=== PATIENT | male | born 1995 | race Caucasian/White ===

== ENCOUNTER 2024-09-12 01:32 | Emergency (ER) | payer OTHER, SELFPAY ==
[2024-09-12 01:37] VITALS: BP 116/76; PULSE 67; RESP 16; TEMP 35.8; O2SAT 99; BMI 24.4
--- NOTE | 2024-09-12 01:58 | ED_ITS ---
HPI - Abdominal Pain General Date Seen: 09/12/24 Chief Complaint: Abdominal Pain Stated Complaint: abdominal pain Time Seen by Provider: 09/12/24 01:36 Source: patient Mode of arrival: ambulatory Limitations: no limitations History of Present Illness HPI narrative: Patient is a 28-year-old male presenting to the emergency department for abdominal pain. He states is seen any he went to a [employer] restaurant that he has frequented multiple times before. Was doing well up until around midnight when he started having epigastric pain. Pain does not seem to radiate. His fiancee ate at the same place and did not get sick. Has not had any nausea or vomiting. No previous abdominal surgeries. Had a normal bowel movement at 20:00. Has been taking some Prilosec, Pepto-Bismol, Tums without any improvement. Has not had any fevers or chills. Denies chest pain or shortness of breath. Denies lightheadedness or dizziness. No one has been sick around him that he is aware of. No other concerns noted. Related Data Allergies Allergy/AdvReac Type Severity Reaction Status Date / Time No Known Drug Allergies Allergy Verified 09/12/24 01:43 Review of Systems Status of ROS Reports: 10 or more systems reviewed and unremarkable except as noted in History and below [facility] Social History Non-prescribed substance use: denies use Exam Narrative: Exam Narrative: Const: Well-nourished, Well-developed, in mild distress Eyes: PERRL, no conjunctival injection, and symmetrical lids HENT: Atraumatic external nose and ears. Moist mucous membranes. Neck: Symmetric, trachea midline, No thyromegaly. CVS: RRR, No murmurs or gallops. Peripheral pulses 2+ and equal in all extremities RESP: Unlabored respiratory effort. Clear to auscultation bilaterally. GI: Epigastric tenderness, Nondistended, No rebound or guarding. Negative Cook sign MSK:Extremities w/o deformity, Normal Active ROM Skin: Warm, Dry. No rashes or lesions. Neuro: Normal Muscle tone, No focal neurological deficits. Psych: Awake, Alert, & Oriented x3. Appropriate mood and affect. Const: Vital Signs, click to edit/add: Vital Signs - 24 hr 09/12/24 01:37 Temperature 96.5 F L Pulse Rate [Left P ulse Oximeter] 67 Respiratory Rate 16 Blood Pressure [Ri ght Upper Arm] 116/76 Pulse Oximetry 99 Oxygen Delivery Me thod Room Air Course Vital Signs Vital signs: Initial Vital Signs Temperature 96.5 F L 09/12/24 01:37 Temperature Source Temporal Artery Scan 09/12/24 01:37 Pulse Rate 67 09/12/24 01:37 Pulse Rhythm Regular 09/12/24 01:37 Respiratory Rate 16 09/12/24 01:37 Blood Pressure 116/76 09/12/24 01:37 Blood Pressure Mean 89 09/12/24 01:37 Blood Pressure Position Sitting 09/12/24 01:37 Pulse Oximetry 99 09/12/24 01:37 Oxygen Delivery Method Room Air 09/12/24 01:37 Vital Signs Temperature 96.5 F L 09/12/24 01:37 Pulse Rate 67 09/12/24 01:37 Respiratory Rate 16 09/12/24 01:37 Blood Pressure 116/76 09/12/24 01:37 Pulse Oximetry 99 09/12/24 01:37 Oxygen Delivery Method Room Air 09/12/24 01:37 Temperature 96.5 F L 09/12/24 01:37 Pulse Rate 67 09/12/24 01:37 Respiratory Rate 16 09/12/24 01:37 Blood Pressure 116/76 09/12/24 01:37 Pulse Oximetry 99 09/12/24 01:37 Oxygen Delivery Method Room Air 09/12/24 01:37 Medications Administered Medications: Discontinued Medications Generic Name Dose Route Start Last Admin Trade Name Freq PRN Reason Stop Dose Admin Lidocaine/Aluminum/Magnesium/Simeth 30 ml 09/12/24 01:58 09/12/24 02:17 Gi Cocktail (Visc Lido/Antacid) 30 Ml PO 09/12/24 01:59 30 ml ONCE ONE Administration MDM - Abdominal Pain MDM Narrative Medical decision making narrative: Patient is a 28-year-old male presenting to the emergency department for epigastric pain. Has pain all across his upper abdomen but much worse the epigastric region. Mild right upper quadrant and left upper quadrant pain. Negative Cook sign. Seems more likely to be related to the gastroenteritis and/or pancreatitis. Less concerned about gallbladder liver disease. Will hold off on ultrasound her lab work comes back. Will do a GI cocktail to see if that helps with the symptoms. Also order CBC, CMP, lipase. I have low concern for appendicitis or diverticulitis currently due to location. Lab work showed a slightly elevated AST and indirect bilirubin. Rest of his lab work shows no concerning findings. Considering the slightly elevated AST I did do a right upper quadrant ultrasound. It showed a distended gallbladder with cholelithiasis but no sonographic evidence of cholecystitis. Is also a pack steatosis and a focal hyperechoic area that may represent a hemangioma. Overall the patient states he is feeling better after the GI cocktail. I do review safe for discharge. Lab Data Labs: Lab Results 09/12/24 09/12/24 Range/Units 02:06 02:51 WBC 6.77 (4.50-11.00) K/uL RBC 4.89 (4.30-5.90) m/uL Hgb 14.3 (13.5-17.5) gm/dL Hct 41.6 (37.0-53.0) % MCV 85 (80-100) fL MCH 29 (26-34) pg MCHC 34 (32-36) gm/dL RDW Coeff of Olegario 13.0 (11.5-15.5) % Plt Count 236 (140-440) K/uL Neut % (Auto) 35.1 L (42.0-72.0) % Lymph % (Auto) 34.9 (20-44) % Metcalfe % (Auto) 8.7 (0.0-11.0) % Eos % (Auto) 20.8 H (0.0-7.0) % Baso % (Auto) 0.4 (0.0-3.0) % Neut # (Auto) 2.40 (1.7-7.0) K/uL Lymph # (Auto) 2.36 (0.90-2.90) K/uL Metcalfe # (Auto) 0.60 (0.00-0.90) K/UL Eos # (Auto) 1.40 H (0.00-0.50) K/uL Baso # (Auto) 0.03 (0.00-0.30) K/uL Abs Immat Gran (auto) 0.01 (0.00-0.30) K/uL Imm/Tot Granulo (auto) 0.1 % Sodium 137 (135-149) mmol/L Potassium 3.4 L (3.6-5.1) mmol/L Chloride 102 (96-114) mmol/L Carbon Dioxide 27 (20-32) mmol/L Anion Gap 8 (7-15) mEq/L BUN 18 (5-24) mg/dL Creatinine 1.4 (0.5-1.5) mg/dL Estimated Creat Clear 84.41 Estimated GFR 71 ml/min Glucose 144 H (60-115) mg/dL Calcium 9.1 (8.4-10.6) mg/dL Total Bilirubin 2.0 H (0.1-1.5) mg/dL Direct Bilirubin 0.2 (0.0-0.5) mg/dL AST 65 H (12-35) U/L ALT 43 (4-50) U/L Alkaline Phosphatase 59 (40-150) U/L Total Protein 7.1 (6.0-8.3) g/dL Albumin 4.3 (3.3-5.0) g/dL Lipase 155 (23-300) U/L Lab Acknowledgement Test Added Imaging Data US - abdomen: Attestation: I have reviewed the pertinent imaging results. Radiologist's impression: 1. Distended gallbladder with cholelithiasis. No other sonographic evidence of cholecystitis. 2. Hepatic steatosis. 3. Focal hyperechoic area along the right hepatic dome, which may represent a hemangioma. Dictated by Mesfin Vo MD @ 09/12/2024 3:58:28 AM Discharge Plan Discharge Clinical Impression: Abdominal pain Qualifiers: Abdominal location: epigastric Qualified Code(s): R10.13 - Epigastric pain Cholelithiasis Qualifiers: Cholelithiasis location: gallbladder Cholecystitis presence: without cholecystitis Biliary obstruction: without biliary obstruction Qualified Code(s): K80.20 - Calculus of gallbladder without cholecystitis without obstruction Patient Disposition: Home, Self-Care Condition: Improved Instructions: Abdominal Pain (ED) Additional Instructions: Your pain may have been from gastroenteritis. Symptoms should improve. Of note though you have also are having some gallstones. Cannot say for certain if this was related to your pain or not. If you continue to have right upper quadrant pain I recommend following up with General surgery. Ultrasound also shows some fatty liver disease and an area in your liver that likely represents a hemangioma. These typically do not require follow-up and intervention is rarely needed. Follow Up/Referrals: Provider,Not a Local [Primary Care Provider, Family Practice] Stand Alone Forms: [employer] Info Instructions
[2024-09-12 02:14] LABS: Basophils Absolute Auto 0.03 K/uL (0.00-0.30); Basophils Percent Auto 0.4 % (0.0-3.0); Eosinophils Percent Auto 20.8 % (0.0-7.0); Hematocrit 41.6 % (37.0-53.0); Hemoglobin* 14.3 gm/dL (13.5-17.5); Immature Granulocytes Abs Auto 0.01 K/uL (0.00-0.30); Immature Granulocytes Pct Auto 0.1 %; Lymphocytes Absolute Auto 2.36 K/uL (0.90-2.90); Lymphocytes Percent Auto 34.9 % (20-44); Mean Corpuscular HGB Conc 34 gm/dL (32-36); Mean Corpuscular Hemoglobin 29 pg (26-34); Mean Corpuscular Volume 85 fL (80-100); Monocytes Percent Auto 8.7 % (0.0-11.0); Neutrophils Percent Auto 35.1 % (42.0-72.0); Platelet Count* 236 K/uL (140-440); Red Blood Count 4.89 m/uL (4.30-5.90); White Blood Count* 6.77 K/uL (4.50-11.00)
[2024-09-12 02:15] LABS: Slide Review Reflex No
[2024-09-12] MEDS: GI COCKTAIL (VISC LIDO/ANTACID) 30 ML PO (02:17)
--- OUTSIDE RECORDS SUMMARY | 2024-09-12 02:22 | XMS_ITS | Clinical Summary ---
Author Organization [employer] [facility] Address [address] [place] [id number] Care Team Providers Care Court Interpreter Name Role Phone Clinic, No Pcp Or Primary Care Provider Unavaila ble Allergies No known active allergies Medications ciprofloxacin HCl (CILOXAN) 0.3 % ophthalmic solutionIndicati ons:Foreign body of left cornea, initial encounter Place 1 Drop into left eye every 2 hours while awake. 5 mL 05/03/2023 Active Social History Tobacco Use Types Packs/Day Years Used Date Smoking Tobacco: Unknown Tobacco Cessation:Counseling Given: Not Answered Sex and Gender Information Value Date Recorded Sex Assigned at Not on file Legal Sex Male 10:30 AM [employer] Gender Identity Not on file Sexual Orientation Not on file Obstetrics History Last Filed Vital Signs Vital Sign Reading Time Taken Comments Blood Pressure 137/84 05/03/2023 10:48 AM [employer] Pulse 84 05/03/2023 10:48 AM [employer] Temperature 36.3 C (97.4 F) 05/03/2023 10:48 AM [employer] Respiratory Rate 20 05/03/2023 10:48 AM [employer] Oxygen Saturation 97% 05/03/2023 10:48 AM [employer] Inhaled Oxygen Concentration - - Weight 83.9 kg (185 lb) 05/03/2023 10:48 AM [employer] Height 180.3 cm (5' 11) 05/03/2023 10:48 AM [employer] Body Mass Index 25.8 05/03/2023 10:48 AM [employer] Plan of Treatment Not on file Insurance RAFFAELE Black [id number] [facility] Care Teams Court Interpreter Relationship Specialty Start Date End Date Clinic, No Pcp Or . PCP - General 05/03/23
[2024-09-12 02:28] LABS: Albumin* 4.3 g/dL (3.3-5.0); Chloride* 102 mmol/L (96-114); Potassium* 3.4 mmol/L (3.6-5.1); Sodium* 137 mmol/L (135-149)
[2024-09-12 02:30] LABS: Blood Urea Nitrogen* 18 mg/dL (5-24); Creatinine* 1.4 mg/dL (0.5-1.5); Est. Creatinine Clearance* 84.41; Estimated Glomerular Filt Rate 71 ml/min
[2024-09-12 02:31] LABS: Alanine Aminotransferase* 43 U/L (4-50); Alkaline Phosphatase* 59 U/L (40-150); Anion Gap 8 mEq/L (7-15); Aspartate Amino Transferase* 65 U/L (12-35); Calcium* 9.1 mg/dL (8.4-10.6); Carbon Dioxide* 27 mmol/L (20-32); Glucose* 144 mg/dL (60-115); Lipase* 155 U/L (23-300); Total Protein* 7.1 g/dL (6.0-8.3)
--- NOTE | 2024-09-12 02:52 | CRLHL7_ITS ---
For Patients: As a result of the Century Cures Act, medical imaging exams and procedure reports are released immediately into your electronic medical record. You may view this report before your referring provider. If you have questions, please contact your health care provider. INDICATION: Right upper quadrant abdominal pain. TECHNIQUE: Ultrasound abdomen limited. Sonographic images of the right upper quadrant were obtained using lovett-scale and color Doppler images. COMPARISON: None. FINDINGS: Liver: Increased in echogenicity, likely reflecting fatty infiltration. Focal area of hyperechogenicity along the right hepatic dome measuring 1.3 x 1.6 x 1.8 cm. No intrahepatic biliary ductal dilatation. Gallbladder: Distended gallbladder with stones and sludge. Non mobile echogenic focus along the gallbladder wall measuring 10 x 5 x 6 mm, likely representing a polyp. Normal wall thickness. No pericholecystic fluid. Negative sonographic Cook`s sign. Common bile duct: 2 mm. Pancreas: Unremarkable. Right kidney: Normal in size. Normal echotexture and cortex. No suspicious masses or hydronephrosis. Vasculature: Proximal abdominal aorta and IVC are unremarkable. Patent main portal vein with hepatopetal flow. IMPRESSION: 1. Distended gallbladder with cholelithiasis. No other sonographic evidence of cholecystitis. 2. Hepatic steatosis. 3. Focal hyperechoic area along the right hepatic dome, which may represent a hemangioma. Dictated by Mesfin Vo MD @ 09/12/2024 3:58:28 AM (Electronically Signed)
--- NOTE | 2024-09-12 03:13 | ED.NURSE ---
pt taken for ultra sound
[2024-09-12 03:15] LABS: Bilirubin Direct* 0.2 mg/dL (0.0-0.5)
[2024-09-12 04:10] VITALS: BP 136/62; PULSE 66; RESP 16; O2SAT 99
== END 2024-09-12 04:18 | disposition home or self-care (01) ==
PROVIDERS: Emergency Provider Student in an Organized Health Care Education/Training Program
DX: K80.00 Calculus of gallbladder with acute cholecystitis without obstruction (principal)
CPT/HCPCS: 00790; 36415; 74177; 76705; 80048; 80053; 80076; 82248; 83690; 85025; 99284; 99285; A9270; J0330; J0665; J0690; J0780; J1100; J2250; J2371; J2405; J2704; J2710; J3010; J3490; J7120; Q9967

== ENCOUNTER 2024-09-12 06:29 | Day surgery (SDC) | payer OTHER, SELFPAY ==
[2024-09-12] VITALS (16 sets, daily range): BP systolic 97–133; BP diastolic 54–91; PULSE 56–96; RESP 8–20; TEMP 36.2–36.7; O2SAT 92–99; BMI 24.4; BMI 24.5
--- NOTE | 2024-09-12 06:56 | ED.ABDPAIN ---
HPI - Abdominal Pain General Date Seen: 09/12/24 Chief Complaint: Abdominal Pain Stated Complaint: Gallbladder stones Time Seen by Provider: 09/12/24 06:46 Source: patient Mode of arrival: ambulatory Limitations: no limitations History of Present Illness HPI narrative: Patient is a 28-year-old male presenting to the emergency department for epigastric pain. He was seen a few hours prior by myself for the symptoms. He did have some cholelithiasis place as his pain was tolerable and he felt safe going home and following up outpatient. States he got home and feels like the pain has been getting worse. Says it is a 7/10 pain and he is unable to sleep due to it. Pain is still in his epigastric region. Has not had anything further to be since onset of symptoms. Denies fevers or chills. No other concerns noted. Related Data Previous Rx's ?Medication ?Instructions ?Recorded hydrocodone 5 mg-acetaminophen 325 1 tab PO Q6H PRN pain #20 tabs 09/12/24 mg tablet Allergies Allergy/AdvReac Type Severity Reaction Status Date / Time No Known Drug Allergies Allergy Verified 09/12/24 01:43 Review of Systems Status of ROS Reports: 10 or more systems reviewed and unremarkable except as noted in History and below [facility] Medical History (Updated 09/13/24 @ 11:06 by Shahram Clement DO) Left tibial fracture ?S82.A - Unspecified fracture of shaft of left tibia, initial encounter for closed fracture (ICD-10) Social History (Updated 09/12/24 @ 09:13 by Dank Ford MD) Narrative: Patient denies smoking, drinks alcohol on the weekends, 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 He does heavy lifting at work. Smoking Status: Smoker, status unknown Do you use any of these nicotine containing products: None How often do you have a drink containing alcohol: 2-3 times a week AUDIT-C Alcohol total score: 3 Non-prescribed substance use: denies use Exam Narrative: Exam Narrative: Const: Well-nourished, Well-developed, in mild distress Eyes: PERRL, no conjunctival injection, and symmetrical lids HENT: Atraumatic external nose and ears. Moist mucous membranes. Neck: Symmetric, trachea midline, No thyromegaly. CVS: RRR, No murmurs or gallops. Peripheral pulses 2+ and equal in all extremities RESP: Unlabored respiratory effort. Clear to auscultation bilaterally. GI: Epigastric tenderness, negative Cook sign, Nondistended, No rebound or guarding. MSK:Extremities w/o deformity, Normal Active ROM Skin: Warm, Dry. No rashes or lesions. Neuro: Normal Muscle tone, No focal neurological deficits. Psych: Awake, Alert, & Oriented x3. Appropriate mood and affect. Const: Vital Signs, click to edit/add: Vital Signs - 24 hr 09/12/24 11:10 09/12/24 11:15 09/12/24 11:20 Temperature Pulse Rate 91 87 86 Respiratory Rate 10 L 14 15 Blood Pressure 112/69 117/65 104/58 L Pulse Oximetry 99 99 95 Oxygen Delivery Me thod Room Air Oxygen Flow Rate 09/12/24 11:25 09/12/24 11:30 09/12/24 11:35 Temperature 98.1 F Pulse Rate 80 75 82 Respiratory Rate 14 16 15 Blood Pressure 112/54 L 108/56 L 120/67 Pulse Oximetry 95 95 97 Oxygen Delivery Me thod Oxygen Flow Rate 09/12/24 11:45 09/12/24 12:00 09/12/24 12:15 Temperature 97.7 F Pulse Rate 96 86 56 L Respiratory Rate 16 16 16 Blood Pressure 107/58 L 114/91 H 110/67 Pulse Oximetry 96 92 97 Oxygen Delivery Me thod Room Air Room Air Nasal Cannula Oxygen Flow Rate 2 09/12/24 12:30 09/12/24 12:46 09/12/24 13:24 Temperature 97.4 F L 97.4 F L Pulse Rate 62 60 66 Respiratory Rate 16 16 16 Blood Pressure 110/65 112/68 97/62 Pulse Oximetry 98 96 96 Oxygen Delivery Me thod Nasal Cannula Room Air Room Air Oxygen Flow Rate 2 09/12/24 13:56 Temperature Pulse Rate 68 Respiratory Rate 16 Blood Pressure 109/60 Pulse Oximetry 96 Oxygen Delivery Me thod Room Air Oxygen Flow Rate Course Vital Signs Vital signs: Initial Vital Signs Temperature 97.4 F L 09/12/24 06:34 Temperature Source Temporal Artery Scan 09/12/24 06:34 Pulse Rate 79 09/12/24 06:34 Pulse Rhythm Regular 09/12/24 06:34 Respiratory Rate 16 09/12/24 06:34 Blood Pressure 133/79 09/12/24 06:34 Blood Pressure Mean 97 09/12/24 06:34 Blood Pressure Position Sitting 09/12/24 06:34 Pulse Oximetry 98 09/12/24 06:34 Oxygen Delivery Method Room Air 09/12/24 06:34 Vital Signs Temperature 97.4 F L 09/12/24 06:34 Pulse Rate 79 09/12/24 06:34 Respiratory Rate 16 09/12/24 06:34 Blood Pressure 133/79 09/12/24 06:34 Pulse Oximetry 98 09/12/24 06:34 Oxygen Delivery Method Room Air 09/12/24 06:34 Temperature 97.4 F L 09/12/24 13:24 Pulse Rate 68 09/12/24 13:56 Respiratory Rate 16 09/12/24 13:56 Blood Pressure 109/60 09/12/24 13:56 Pulse Oximetry 96 09/12/24 13:56 Oxygen Delivery Method Room Air 09/12/24 13:56 Oxygen Flow Rate 2 09/12/24 12:30 Medications Administered Medications: Discontinued Medications Generic Name Dose Route Start Last Admin Trade Name Freq PRN Reason Stop Dose Admin Bupivacaine HCl 30 ml 09/12/24 10:13 09/12/24 10:13 Bupivacaine 0.25% 30 Ml INJECTION 09/12/24 10:14 10 ml ONCE ONE Administration Cefazolin Sodium 0 gm 09/12/24 09:08 09/12/24 09:51 Cefazolin 1 Gm Inj IVP 09/12/24 09:09 2 gm ONCE ONE Administration Lactated Ringer's 1,000 mls @ 100 mls/hr 09/12/24 08:35 09/12/24 14:00 Lactated Ringers 1000 Ml IV Infused .Q10H KENDRA Infusion Lidocaine/Aluminum/Magnesium/Simeth 30 ml 09/12/24 06:53 09/12/24 06:58 Gi Cocktail (Visc Lido/Antacid) 30 Ml PO 09/12/24 06:54 30 ml ONCE ONE Administration Lidocaine/Epinephrine 20 ml 09/12/24 10:13 09/12/24 10:13 Lidocaine 1%-Epi 1:100,000 INFILTRATI 09/12/24 10:14 10 ml ONCE ONE Administration Ondansetron HCl 4 mg 09/12/24 08:34 09/12/24 11:45 Ondansetron 2 Mg/Ml Inj IVP 4 mg ONCE PRN Administration Nausea Oxycodone HCl 5 mg 09/12/24 06:53 09/12/24 06:58 Oxycodone 5 Mg Tablet PO 09/12/24 06:54 5 mg ONCE ONE Administration Prochlorperazine 5 mg 09/12/24 08:34 09/12/24 12:07 Prochlorperazine 5 Mg/Ml Vial IVP 09/12/24 08:35 5 mg ONCE ONE Administration Sodium Chloride 10 ml 09/12/24 08:34 09/12/24 08:51 Sodium Chloride 0.9 % (Flush) 10 Ml Syringe IVF 10 ml .FLUSH PRN Administration MDM - Abdominal Pain MDM Narrative Medical decision making narrative: Patient is a 28-year-old male presenting for epigastric pain. He is also having some mild right upper quadrant pain but is nontender to the right upper quadrant. He has known cholelithiasis diagnosed earlier this morning. Lab work from this morning showed no concerning abnormalities other than mildly elevated LFT. Lipase was normal. Will give him some more oxycodone and another GI cocktail to see if it helps the symptoms. Patient's pain is improved now I spoke to mom about following up outpatient symptoms surgery versus talking to them about a possible surgery today for his cholelithiasis. This time he would prefer to follow-up outpatient. I will still speak to General surgery to get their opinion. I spoke to Dr. Ford, and explained that his earlier labs from this morning were not overtly concerning and his pain is more epigastric and right upper quadrant. She recommends doing a CT scan for evaluation and if it is normal to follow-up with General surgery and primary care. CT scan shows concerns of cholecystitis. His white count is still normal. I spoke to Dr. Ford again in her plan is to do surgery today. He is agreeable to this plan. He will be NPO Lab Data Labs: Lab Results 09/12/24 Range/Units 07:55 WBC 7.59 (4.50-11.00) K/uL RBC 4.99 (4.30-5.90) m/uL Hgb 14.4 (13.5-17.5) gm/dL Hct 42.4 (37.0-53.0) % MCV 85 (80-100) fL MCH 29 (26-34) pg MCHC 34 (32-36) gm/dL RDW Coeff of Olegario 13.2 (11.5-15.5) % Plt Count 247 (140-440) K/uL Neut % (Auto) 61.5 (42.0-72.0) % Lymph % (Auto) 16.9 L (20-44) % Geary % (Auto) 9.6 (0.0-11.0) % Eos % (Auto) 11.6 H (0.0-7.0) % Baso % (Auto) 0.3 (0.0-3.0) % Neut # (Auto) 4.67 (1.7-7.0) K/uL Lymph # (Auto) 1.30 (0.90-2.90) K/uL Geary # (Auto) 0.70 (0.00-0.90) K/UL Eos # (Auto) 0.90 H (0.00-0.50) K/uL Baso # (Auto) 0.02 (0.00-0.30) K/uL Abs Immat Gran (auto) 0.01 (0.00-0.30) K/uL Imm/Tot Granulo (auto) 0.1 % Sodium 138 (135-149) mmol/L Potassium 3.7 (3.6-5.1) mmol/L Chloride 104 (96-114) mmol/L Carbon Dioxide 27 (20-32) mmol/L Anion Gap 7 (7-15) mEq/L BUN 17 (5-24) mg/dL Creatinine 1.1 (0.5-1.5) mg/dL Estimated Creat Clear 107.44 Estimated GFR 94 ml/min Glucose 133 H (60-115) mg/dL Calcium 9.3 (8.4-10.6) mg/dL Total Bilirubin 2.3 H (0.1-1.5) mg/dL Direct Bilirubin 0.4 (0.0-0.5) mg/dL AST 307 H (12-35) U/L ALT 156 H (4-50) U/L Alkaline Phosphatase 75 (40-150) U/L Total Protein 7.2 (6.0-8.3) g/dL Albumin 4.3 (3.3-5.0) g/dL Lipase 157 (23-300) U/L Imaging Data CT scan abdomen pelvis: Attestation: I have reviewed the pertinent imaging results. Radiologist's impression: CT appearance suggest acute calculus cholecystitis. No biliary ductal dilatation. Please note that all CT scans at this facility use dose modulation, iterative reconstruction, and/or weight-based dosing when appropriate to reduce radiation dose to as low as reasonably achievable. Dictated by Deb Vilchis MD @ 09/12/2024 8:09:51 AM Discharge Plan Discharge Clinical Impression: Acute cholecystitis Patient Disposition: XFER to OR Condition: Improved
[2024-09-12] MEDS: OXYCODONE 5 MG TABLET PO (06:58)
[2024-09-12] MEDS: GI COCKTAIL (VISC LIDO/ANTACID) 30 ML PO (06:58)
--- NOTE | 2024-09-12 07:38 | CRLHL7_ITS ---
For Patients: As a result of the Century Cures Act, medical imaging exams and procedure reports are released immediately into your electronic medical record. You may view this report before your referring provider. If you have questions, please contact your health care provider. INDICATION: Epigastric pain, cholelithiasis. COMPARISON: Same day right upper quadrant ultrasound TECHNIQUE: CT of the abdomen and pelvis with intravenous contrast. Multiplanar axial, coronal, and sagittal reformats were reconstructed. Contrast: 85 mL Isovue 370. FINDINGS: Lung bases: Normal. Liver: Focal steatosis near the falciform ligament. There is no CT correlate to the subcapsular hyperechoic lesion seen on ultrasound. Gallbladder and bile ducts: Cholelithiasis. There is some pericholecystic edema. Mild gallbladder wall thickening. No bile duct dilation. Pancreas: Normal. Spleen: Normal. Adrenal glands: Normal. Kidneys: Normal parenchyma. No cyst or solid mass. No calculi. No urinary tract dilation. Urinary bladder: Normal. Pelvis: No cyst or mass. Vessels: Normal. Bowel: Moderate amount of ingested food and fluid in the stomach. No dilated or inflamed bowel. Normal appendix. Moderate stool burden. Lymph nodes: No adenopathy. Peritoneum: No ascites. Abdominal wall: No hernia. Bones: No fractures. No focal worrisome bone lesions. IMPRESSION: CT appearance suggest acute calculus cholecystitis. No biliary ductal dilatation. Please note that all CT scans at this facility use dose modulation, iterative reconstruction, and/or weight-based dosing when appropriate to reduce radiation dose to as low as reasonably achievable. Dictated by Deb Vilchis MD @ 09/12/2024 8:09:51 AM (Electronically Signed)
[2024-09-12 08:05] LABS: Basophils Absolute Auto 0.02 K/uL (0.00-0.30); Basophils Percent Auto 0.3 % (0.0-3.0); Eosinophils Percent Auto 11.6 % (0.0-7.0); Hematocrit 42.4 % (37.0-53.0); Hemoglobin* 14.4 gm/dL (13.5-17.5); Immature Granulocytes Abs Auto 0.01 K/uL (0.00-0.30); Immature Granulocytes Pct Auto 0.1 %; Lymphocytes Percent Auto 16.9 % (20-44); Mean Corpuscular HGB Conc 34 gm/dL (32-36); Mean Corpuscular Hemoglobin 29 pg (26-34); Mean Corpuscular Volume 85 fL (80-100); Monocytes Percent Auto 9.6 % (0.0-11.0); Neutrophils Absolute Auto 4.67 K/uL (1.7-7.0); Neutrophils Percent Auto 61.5 % (42.0-72.0); Platelet Count* 247 K/uL (140-440); RDW Coefficient of Variation % 13.2 % (11.5-15.5); Red Blood Count 4.99 m/uL (4.30-5.90); White Blood Count* 7.59 K/uL (4.50-11.00)
[2024-09-12 08:06] LABS: Slide Review Reflex No
[2024-09-12 08:21] LABS: Albumin* 4.3 g/dL (3.3-5.0); Chloride* 104 mmol/L (96-114)
[2024-09-12 08:22] LABS: Potassium* 3.7 mmol/L (3.6-5.1); Sodium* 138 mmol/L (135-149)
[2024-09-12 08:24] LABS: Alanine Aminotransferase* 156 U/L (4-50); Alkaline Phosphatase* 75 U/L (40-150); Anion Gap 7 mEq/L (7-15); Aspartate Amino Transferase* 307 U/L (12-35); Bilirubin Direct* 0.4 mg/dL (0.0-0.5); Bilirubin Total* 2.3 mg/dL (0.1-1.5); Blood Urea Nitrogen* 17 mg/dL (5-24); Carbon Dioxide* 27 mmol/L (20-32); Creatinine* 1.1 mg/dL (0.5-1.5); Est. Creatinine Clearance* 107.44; Estimated Glomerular Filt Rate 94 ml/min; Total Protein* 7.2 g/dL (6.0-8.3)
[2024-09-12 08:25] LABS: Calcium* 9.3 mg/dL (8.4-10.6); Glucose* 133 mg/dL (60-115); Lipase* 157 U/L (23-300)
[2024-09-12] MEDS: SODIUM CHLORIDE 0.9 % (FLUSH) 10 ML SYRINGE IVF (08:51)
[2024-09-12] MEDS: LACTATED RINGERS 1000 ML 1,000 ML 100 ML IV ×2 (08:51→11:56)
--- NOTE | 2024-09-12 09:08 | P.GSCN_ITS ---
History of Present Illness Consult details Date Seen: 09/12/24 Consult date: 09/12/24 Narrative: 28-year-old male presented to emergency room with epigastric pain and I was asked by Dr. Clement to see him in consultation. Patient states that last night around 5 in the evening he developed epigastric pain after eating [place] raise. The pain was dull and was not going away. He took 3 Tums and the pain subsided slightly. He then came home and ate more [place] rice and the pain became horrible. The pain was located similar in epigastrium and was described as dull and persistent. The pain was also described as severe. Patient had no nausea or vomiting. Patient was passing gas and his last bowel movement was yesterday. Patient presented to emergency room in the middle of the night. I personally reviewed his workup in the emergency room. He was found to have normal WBC, total bilirubin of 2 with normal direct bilirubin. His AST was mildly elevated and ALT and lipase were normal. A gallbladder ultrasound was obtained that showed sludge with gallstones. The gallbladder wall was measured at 0.26 mm, there was possibly a gallbladder polyp seen measuring 10 mm. Common bile duct was measured at 0.2. Patient was discharged home but when he was walking to the car, his pain was bothering him. Patient got home and could not get comfortable and go to sleep and re-presented to the emergency room early in the morning. His lab work was repeated and showed total bilirubin of 2.3 with normal direct bilirubin, AST 3 of 7, ALT 156, and normal WBC. An abdominal CT was obtained that showed distended gallbladder with mild gallbladder wall thickening and possible mild inflammation. There was no dilated small or large intestine. There is no inflammation of the duodenum. Review of Systems Narrative: General: no fevers HENT: no problems swallowing CV: no shortness of breath Resp: no cough GI: No nausea, vomiting, abdominal pain : no dysuria, no increased urinary frequency, no hematuria Skin: no new rashes Musculoskeletal: no back pain Neuro: no muscle weakness Psyche: no depression, no anxiety PFSH PFS Medical History (Updated 09/12/24 @ 09:16 by Dank Ford MD) Left tibial fracture ?S82.202A - Unspecified fracture of shaft of left tibia, initial encounter for closed fracture (ICD-10) Social History (Updated 09/12/24 @ 09:13 by Dank Ford MD) Narrative: Patient denies smoking, drinks alcohol on the weekends, 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 He does heavy lifting at work. Smoking Status: Smoker, status unknown Do you use any of these nicotine containing products: None How often do you have a drink containing alcohol: 2-3 times a week AUDIT-C Alcohol total score: 3 Non-prescribed substance use: denies use Meds Home Medications and Allergies Allergies Allergy/AdvReac Type Severity Reaction Status Date / Time No Known Drug Allergies Allergy Verified 09/12/24 01:43 Exam Narrative: Exam Narrative: General appearance: Alert, cooperative, and in no distress Pulmonary: Chest symmetric, lungs clear bilaterally Cardiovascular Heart: Regular rate and rhythm, S1, S2, no murmurs/rubs/gallops Gastrointestinal Abdominal: soft, not distended, mild discomfort to palpation in epigastrium, not tender to palpation in the right upper quadrant, negative Cook sign. Skin: Normal skin color, texture, and turgor. No rashes or lesions. Psychiatric: Alert, cooperative, normal affect. Const: Vital Signs, click to edit/add: Vital Signs - 24 hr 09/12/24 06:34 09/12/24 08:47 Temperature 97.4 F L 97.1 F L Pulse Rate 72 Pulse Rate [Left P ulse Oximeter] 79 Respiratory Rate 16 20 Blood Pressure 125/72 Blood Pressure [Ri ght Upper Arm] 133/79 Pulse Oximetry 98 97 Oxygen Delivery Me thod Room Air Room Air Results Labs Labs: Abnormal lab results 09/12/24 Range/Units 07:55 Lymph % (Auto) 16.9 L (20-44) % Eos % (Auto) 11.6 H (0.0-7.0) % Eos # (Auto) 0.90 H (0.00-0.50) K/uL Glucose 133 H (60-115) mg/dL Total Bilirubin 2.3 H (0.1-1.5) mg/dL AST 307 H (12-35) U/L ALT 156 H (4-50) U/L Diabetes panel 09/12/24 Range/Units 07:55 Sodium 138 (135-149) mmol/L Potassium 3.7 (3.6-5.1) mmol/L Chloride 104 (96-114) mmol/L Carbon Dioxide 27 (20-32) mmol/L BUN 17 (5-24) mg/dL Creatinine 1.1 (0.5-1.5) mg/dL Glucose 133 H (60-115) mg/dL Calcium 9.3 (8.4-10.6) mg/dL AST 307 H (12-35) U/L ALT 156 H (4-50) U/L Alkaline Phosphatase 75 (40-150) U/L Total Protein 7.2 (6.0-8.3) g/dL Albumin 4.3 (3.3-5.0) g/dL Calcium panel 09/12/24 Range/Units 07:55 Calcium 9.3 (8.4-10.6) mg/dL Albumin 4.3 (3.3-5.0) g/dL Pituitary panel 09/12/24 Range/Units 07:55 Sodium 138 (135-149) mmol/L Potassium 3.7 (3.6-5.1) mmol/L Chloride 104 (96-114) mmol/L Carbon Dioxide 27 (20-32) mmol/L BUN 17 (5-24) mg/dL Creatinine 1.1 (0.5-1.5) mg/dL Glucose 133 H (60-115) mg/dL Calcium 9.3 (8.4-10.6) mg/dL Adrenal panel 09/12/24 Range/Units 07:55 Sodium 138 (135-149) mmol/L Potassium 3.7 (3.6-5.1) mmol/L Chloride 104 (96-114) mmol/L Carbon Dioxide 27 (20-32) mmol/L BUN 17 (5-24) mg/dL Creatinine 1.1 (0.5-1.5) mg/dL Glucose 133 H (60-115) mg/dL Calcium 9.3 (8.4-10.6) mg/dL Total Bilirubin 2.3 H (0.1-1.5) mg/dL AST 307 H (12-35) U/L ALT 156 H (4-50) U/L Alkaline Phosphatase 75 (40-150) U/L Total Protein 7.2 (6.0-8.3) g/dL Albumin 4.3 (3.3-5.0) g/dL All other labs normal. Progress Note:A&P Assessment and plan (1) Cholelithiasis: Status: Acute (2) Cholecystitis, acute: Status: Acute Plan 28-year-old male presents with early acute cholecystitis. I discussed with the patient and his fiancee his laboratory and imaging findings. Patient has distended gallbladder on the ultrasound with sludge and cholelithiasis. Patient's transaminases became elevated several hours after his initial presentation, which is suspicious for acute inflammation. His abdominal CT showed distended gallbladder with mild gallbladder wall thickening, which is also suspicious for acute cholecystitis. In addition, patient's gallbladder ultrasound showed possible gallbladder polyp of 10 mm. On clinical exam patient has no positive Cook sign and his WBC is normal. I discussed with the patient that given his laboratory and imaging findings, I am suspicious for early acute cholecystitis. I do not think he has evidence of choledocholithiasis given his normal common bile duct on the ultrasound and his normal direct bilirubin. I recommended to proceed with laparoscopic cholecystectomy. The procedure was discussed in detail. The risks associated procedure including infection, bleeding, injury to intra-abdominal organs, and injury to the common bile duct were all discussed with the patient, and he agreed to proceed.
--- NOTE | 2024-09-12 09:18 | P.ANES_ITS ---
Anesthesia Charges Start Date/Time Anesthesia Start Date: 09/12/24 Anesthesia Start Time: 09:36 Stop Date/Time Anesthesia Stop Date: 09/12/24 Anesthesia Stop Time: 11:10 Coding CPT Codes CPT Codes: ANESTH SURG UPPER ABDOMEN - 46249 ([id number]) P1 - NORMAL HEALTHY PATIENT, QK - WOOD TYPE FINISHER 2-4 CNCRNT ANES PROC, QX - COMPUTER TEACHER SVJenn W/ MED DIRECTION
--- NOTE | 2024-09-12 09:18 | W.ANESCHARGE ---
Anesthesia Charges Start Date/Time Anesthesia Start Date: 09/12/24 Anesthesia Start Time: 09:36 Stop Date/Time Anesthesia Stop Date: 09/12/24 Anesthesia Stop Time: 11:10 Coding CPT Codes CPT Codes: ANESTH SURG UPPER ABDOMEN - 17937 ([id number]) P1 - NORMAL HEALTHY PATIENT, QK - GAS OR WATER METER INSTALLER 2-4 CNCRNT ANES PROC, QX - RECEIVER DISPATCHER SVJenn W/ MED DIRECTION
--- NOTE | 2024-09-12 09:33 | P.GSOP_ITS ---
Operative Note Date of procedure: 09/12/24 Pre-op diagnosis: 1. Acute cholecystitis. 2. Cholelithiasis. 3. Possible gallbladder polyp. Post-op diagnosis: Same Type of Procedure: 1. Laparoscopic cholecystectomy. Indications: 28-year-old male presented to emergency room with epigastric pain that started last night. Patient had no nausea or vomiting. Patient's workup in the emergency room showed normal WBC, his AST was mildly elevated, his ultrasound showed distended gallbladder with cholelithiasis and sludge. The gallbladder wall was at the upper limits of normal in common bile duct was normal in size. Patient was discharged home but by the time he got home, his pain was more severe and he returned to the emergency room. Patient's labs were repeated and showed normal direct bilirubin with elevated AST and ALT. An abdominal CT was obtained that showed distended gallbladder with mild gallbladder wall inflammation. On clinical exam patient had mild discomfort to palpation in epigastrium and negative Cook sign. Given patient's clinical picture, his laboratory and imaging findings, I was suspicious for early acute cholecystitis. I recommended to proceed with laparoscopic cholecystectomy. The procedure was discussed in detail. The risks associated procedure including infection, bleeding, injury to intra-abdominal organs, injury to the common bile duct were all discussed with the patient, and he agreed to proceed. Procedure Description: After discussing the risks and benefits of the procedure, the patient signed informed consent.? The operative site was marked and the patient was brought to the operating room and placed on the operating table in supine position.? Care was taken to pad the patient's pressure points.?? The patient was then intubated by anesthesia.?? The operative site was then prepped and draped in the usual sterile fashion.? A time-out was then performed. A 5-mm laparoscopy port was placed in the left upper quadrant guided by a 5-mm laparoscope placed into a translucent trochar.~ Passage through the layers of the abdominal wall was visualized with the laparoscope.~ A pneumoperitoneum was established. A 0-degree 5-mm laparoscope was advanced into the abdomen. The abdomen was briefly surveyed, and no adhesions were noted. A 10-mm port were placed infraumbilically and two more 5 mm ports were placed on the right under direct visualization by laparoscope. The camera was then changed to 10 mm 30- degree scope and placed into the abdomen through the 10 mm port. The left upper quadrant port entrance was examined and no injury to intra-abdominal organs was identified. The gallbladder was identified, the fundus grasped and retracted cephalad. The infundibulum was grasped and retracted laterally, exposing the peritoneum overlying the triangle of Calot. Omentum was adherent to the gallbladder infundibulum, those adhesions were taken down with hook cautery. The peritoneum over the triangle of Calot was then divided and exposed in a blunt fashion and with hook cautery. Common bile duct was not identified but care was taken not to injure it. The cystic duct was clearly identified and bluntly dissected circumferentially. Cystic artery was identified and tissues around it were dissected off. The cystic artery was doubly ligated with 5 mm clips on the patient's side and a single clip was placed on the specimen side and the cystic artery was divided between the clips. A small vein was noted to go into the gallbladder in fundibulum medially. This was clipped with a single clip on the patient's side and divided with Metzenbaum scissors near the gallbladder infundibulum. Similarly, the cystic duct was then doubly ligated with surgical clips on the patient's side and singly clipped on the gallbladder side and divided. The gallbladder was dissected from the liver bed in retrograde fashion using hookcautery. Edema was seen in the gallbladder wall during this dissection. This was consistent with acute cholecystitis. The gallbladder was placed into an Endo-Catch bag and removed through the infraumbilical incision. Surgical site was examined for bleeding. No bleeding was seen in the surgical field. The fascia of the infraumbilical incision was then closed with 0-0 vicryl using Sumit French needle under direct visualization. Pneumoperitoneum was completely reduced after viewing removal of the trocars under direct vision. The skin was then closed with 4-0 monocryl and steristrips were applied. Instrument, sponge, and needle counts were correct at closure and at the conclusion of the case. The patient was transferred to PACU in stable condition. Findings: Acute cholecystitis, the cystic duct was normal in size. Anesthesia: GETA Surgeon: Dank Ford MD Estimated blood loss (mL): 5 Specimen: Gallbladder Condition: stable Disposition: PACU
[2024-09-12] MEDS: CEFAZOLIN 1 GM inj IVP (09:51)
[2024-09-12] MEDS: BUPIVACAINE 0.25% 30 ML INJECTION (10:13)
[2024-09-12] MEDS: LIDOCAINE 1%-EPI 1:100,000 20 ML INFILTRATI (10:13)
--- NOTE | 2024-09-12 11:11 | P.ANES_ITS ---
Anesthesia Charges Start Date/Time Anesthesia Start Date: 09/12/24 Anesthesia Start Time: 09:36 Stop Date/Time Anesthesia Stop Date: 09/12/24 Anesthesia Stop Time: 11:10 Coding CPT Codes CPT Codes: ANESTH SURG UPPER ABDOMEN - 34450 ([id number]) P1 - NORMAL HEALTHY PATIENT, QK - CASTINGS DRAFTER 2-4 CNCRNT ANES PROC, QX - SPREADER OPERATOR AUTOMATIC SVJenn W/ MED DIRECTION
--- NOTE | 2024-09-12 11:11 | W.ANESCHARGE ---
Anesthesia Charges Start Date/Time Anesthesia Start Date: 09/12/24 Anesthesia Start Time: 09:36 Stop Date/Time Anesthesia Stop Date: 09/12/24 Anesthesia Stop Time: 11:10 Coding CPT Codes CPT Codes: ANESTH SURG UPPER ABDOMEN - 73418 ([id number]) P1 - NORMAL HEALTHY PATIENT, QK - BUTCHER SUPERVISOR 2-4 CNCRNT ANES PROC, QX - SALES STRATEGY MANAGER SVJenn W/ MED DIRECTION
[2024-09-12] MEDS: ONDANSETRON 2 MG/ML inj 4 MG IVP (11:45)
[2024-09-12] MEDS: PROCHLORPERAZINE 5 MG/ML VIAL IVP (12:07)
--- NOTE | 2024-09-12 13:58 | SUR.PHASEII ---
feeling better, however still slightly nauseated, no emisis, lightheaded. able to ambulate safely. advised to rest at home
== END 2024-09-12 14:03 | disposition home or self-care (01) ==
LOC: ED 08:24 → SS 08:29
PROVIDERS: Student in an Organized Health Care Education/Training Program; Emergency Provider Family Medicine; Visit Provider Surgery
PROC: 0FT44ZZ Resection of Gallbladder, Percutaneous Endoscopic Approach (ICD-10-PCS; CPT 47562; principal; 2024-09-12 09:00)
DX: K80.00 Calculus of gallbladder with acute cholecystitis without obstruction (principal)
CPT/HCPCS: 47562; 00790; 36415; 74177; 80048; 80076; 83690; 85025; 99284; 99285; A9270; J0330; J0665; J0690; J0780; J1100; J2250; J2371; J2405; J2704; J2710; J3010; J3490; J7120; Q9967